=== PATIENT | female | born 1960 | race Caucasian/White ===

== ENCOUNTER 2021-12-09 12:03 | Inpatient (IN) | payer SELFPAY ==
[~2021-12-09] VITALS: Ht 161.3 cm; Wt 83.9 kg
[2021-12-09 12:06] VITALS: BP 156/84
--- NOTE | 2021-12-09 12:18 | NUR ---
DR RUIZ AT BEDSIDE EVALUATING PT
--- NOTE | 2021-12-09 12:20 | NUR ---
Dr. Bradshaw is evaluating pt at bedside
--- NOTE | 2021-12-09 12:23 | NUR ---
Oral T 101.7. Dr Bradshaw made aware.
--- NOTE | 2021-12-09 12:24 | NUR ---
61 y/o female, c/o abdominal pain x 1 week. Patient A&Ox4, ambulatory, states RLQ quadrant pain, 7/10, radiating down leg. Pt also states low back pain and dizziness. Denies n/v/d, constipation, dysuria, recent lifting, trauma/injury. Denies meds prior to arrival. Pt placed onto ekg monitor. Bed locked in lowest position, side rails x 1. Oral T 101.7. pmh: denies nka med: denies
[2021-12-09] MEDS ORDERED: MORPHINE SULFATE 4 MG/ML SYR IVP ONE (12:25)
[2021-12-09] MEDS ORDERED: NACL 0.9% 1,000 ML IV ONE ×2 (12:25→13:00)
--- NOTE | 2021-12-09 12:46 | NUR ---
Patient transported to CT by wheelchair
--- NOTE | 2021-12-09 12:49 | NUR ---
Lab at bedside.
--- NOTE | 2021-12-09 12:49 | NUR ---
Blood sample and UA handed to CPT Nicolasa at ER bedside
--- NOTE | 2021-12-09 12:55 | NUR ---
Patient returned from CT and placed back onto ceramic sprayer.
[2021-12-09] MEDS ORDERED: PIPERACILLIN/TAZOBACTAM 3.375 GM in DEXTROSE 5% 50 ML IV ONE (13:00)
[2021-12-09] MEDS ORDERED: PIPERACILLIN/TAZOBACTAM 3.375 GM VIAL IV ONE ×3 (13:37→23:30)
--- NOTE | 2021-12-09 13:40 | NUR ---
Spoke with lab who states will run pending STAT CBC/CMP at this time per Dr. Jackson request.
[2021-12-09 13:42] LABS: APPEARANCE,URINE CLEAR (CLEAR); BILIRUBIN,URINE 1+ (NEGATIVE); BLOOD, URINE TRACE-I (NEGATIVE); COLOR,URINE YELLOW (YELLOW); LEUKOCYTE ESTERASE ,URINE NEGATIVE (NEGATIVE); NITRITE, URINE NEGATIVE (NEGATIVE); UGLUCOSE NEGATIVE (NEGATIVE)
[2021-12-09 13:44] LABS: BASOPHILS % (AUTO) 0.3 % (0.0-2.0); EOSINOPHILS % (AUTO) 0.3 % (0.0-4.0); HEMATOCRIT 36.2 % (36-48); LYMPHOCYTES # (AUTO) 0.7 K/uL (2.5-16.5); LYMPHOCYTES % (AUTO) 5.1 % (20.5-51.1); MEAN CORPUSCULAR HEMOGLOBIN 27 pg (27-31); MEAN CORPUSCULAR HGB CONC 33 g/dL (33-37); MEAN CORPUSCULAR VOLUME 80.3 fL (80-94); MONOCYTES # (AUTO) 0.8 K/uL (0.8-1.0); MONOCYTES % (AUTO) 5.5 % (1.7-9.3); NEUTROPHILS # (AUTO) 12.3 K/uL (1.8-7.7); NEUTROPHILS % (AUTO) 88.8 % (42.2-75.2); PLATELET COUNT (AUTO) 671 K/uL (140-450); RED CELL DISTRIBUTION WIDTH 15.4 % (11.6-13.7); WHITE BLOOD COUNT (AUTO) 13.9 K/uL (4.8-10.8)
--- NOTE | 2021-12-09 14:03 | NUR ---
Ac coy in ED - 12/09/21 at 1404 by GABRIELA Spoke with lab who states will run pending STAT CBC/CMP at this time per Dr. Jackson request.
[2021-12-09 14:07] LABS: ALBUMIN 1.8 g/dL (3.4-5.0); ANION GAP 10.7 (8-16); CARBON DIOXIDE 30.6 mmol/L (21-32); CREATININE 0.9 mg/dL (0.6-1.3); POTASSIUM 4.3 mmol/L (3.5-5.1); TOTAL BILIRUBIN 0.8 mg/dL (0.0-1.0)
[2021-12-09 14:14] LABS: RBC,URINE 0-5 /HPF (0-5); WBC,URINE 0-5 /HPF (0-5)
--- NOTE | 2021-12-09 14:14 | NUR ---
Dr. Jackson is at bedside with patient's daughter.
[2021-12-09 14:15] LABS: CALCIUM OXALATE CRYSTALS,UR None Seen /HPF (None Seen); COARSE GRANULAR CASTS,URINE None Seen /LPF (None Seen); FINE GRANULAR CASTS,URINE None Seen /LPF (None Seen); HYALINE CASTS, URINE None Seen /LPF (None Seen); OTHER CRYSTALS,URINE None Seen /HPF (None Seen); RED BLOOD CELL CASTS,URINE None Seen /LPF (None Seen); TRICHOMONAS,URINE None Seen /HPF (None Seen); TRIPLE PHOSPHATE CRYSTAL,UR None Seen /HPF (None Seen); URIC ACID CRYSTALS,URINE None Seen /HPF (None Seen); URINE AMORPHOUS URATE None Seen /HPF (None Seen); WAXY CASTS,URINE None Seen /LPF (None Seen); YEAST,URINE None Seen /HPF (None Seen)
--- NOTE | 2021-12-09 14:15 | NUR ---
Daughter at bedside.
[2021-12-09 14:16] LABS: OTHER CASTS, URINE None Seen /LPF (None Seen)
--- NOTE | 2021-12-09 14:24 | NUR ---
Dr. Jackson is evaluating patient at bedside with Urdu interpretor #[id number].
[2021-12-09] MEDS ORDERED: ONDANSETRON 4 MG/2 ML VIAL IVP PRN (14:55)
[2021-12-09] MEDS ORDERED: HYDROcodone/APAP 5/325 MG 1 TAB TAB PO PRN (14:55)
--- NOTE | 2021-12-09 15:14 | NUR ---
Daisy (daughter in law) [phone]
[2021-12-09] MEDS ORDERED: OMEP10EC PO (15:18)
--- NOTE | 2021-12-09 16:25 | NUR ---
Patient resting in semi-fowlers position. library monitor in place. Bed locked in lowest position, side rails x 1.
[2021-12-09] MEDS ORDERED: NACL 0.9% 1,000 ML IV SCH (17:25)
--- NOTE | 2021-12-09 17:59 | NUR ---
Dr. Villanueva is evaluating patient at bedside
--- NOTE | 2021-12-09 18:01 | NUR ---
Dr. Villanueva made aware of oral T 101.2. Dr. Villanueva states he will change to NPO EXCEPT MEDS. Tylenol PO PRN to be given.
[2021-12-09] MEDS: ACETAMINOPHEN 325 MG TAB PO PRN (18:03)
[2021-12-09] MEDS ORDERED: VANCOMYCIN PER PHARMACY MC PRN (18:10)
[2021-12-09] MEDS ORDERED: VANCOMYCIN 1,000 MG in DEXTROSE 5% 250 ML IV SCH (18:15)
[2021-12-09] MEDS ORDERED: VANCOMYCIN 1,000 MG VIAL ONE (18:28)
--- NOTE | 2021-12-09 18:46 | NUR ---
Oral temperature 100.7. Patient states 7/10 pain at this time. traffic monitor specialist remains in place with IVF/IVPB. Bed locked in lowest position, side rails x 1. Spouse remains at bedside.
[2021-12-09] MEDS: MORPHINE SULFATE 2 MG/ML SYR IVP PRN (18:48)
--- NOTE | 2021-12-09 19:02 | NUR ---
Pain 5/10; denies nausea, SOB. All pt needs met. SpO2 93% RR 24.
--- NOTE | 2021-12-09 19:12 | NUR ---
Report and transfer of care endorsed to MARY Wesley.
--- NOTE | 2021-12-09 20:53 | NUR ---
LUIS ANGEL CRISTIAN [phone] PLEASE CALL WHEN SHE HAS SURGERY
[2021-12-09] MEDS: PIPERACILLIN/TAZOBACTAM 3.375 GM in DEXTROSE 5% 50 ML IV SCH ×2 (20:56→23:44)
--- NOTE | 2021-12-09 22:04 | NUR ---
PT SAT UP AND BED, DANGLED FEET , ASSISTED TO STAND UP . PT AMBULATED TO BATHROOM WITH EVEN AND STEADY GAIT.
--- NOTE | 2021-12-09 22:30 | NUR ---
Patient will be admitted to care of . Admited to MED SURG. Will go to [id number] B. Belongings list completed. Report to SUZIE STANTON.
--- NOTE | 2021-12-10 01:24 | NUR ---
PATIENT TO ROOM 106-B AT 2240 PATIENT ALERT X4 NO C/O OF PAIN IS NPO EXCEPT MEDS DUE TO BOWEL PERFORATION.TO HAVE IN A.M COLOSTOMY AT 10 A.M. PATIENT RECEIVED ZOSYN 3.375 GM 0000 AND AGAIN AT 0600. TEMP 99.1 B/P 124/58. HAS NS INFUSING AT 100 HOUR. HAS 20 GA RIGHT A.C. PATIENT ON MONITOR SINUS TACH. 107 HEART RATE. PATIENT NPO POST MID-NITE PATIENT IS BELARUSIAN SPEAKING ONLY. NKA. NO DIET NO DISTRESS NOTED AT THIS TIME.
[2021-12-10 04:00] VITALS: BP 115/59
[2021-12-10] MEDS ORDERED: PIPERACILLIN/TAZOBACTAM 3.375 GM VIAL IV ONE ×2 (04:55→10:46)
[2021-12-10] MEDS: PIPERACILLIN/TAZOBACTAM 3.375 GM in DEXTROSE 5% 50 ML IV SCH ×3 (06:00→21:46)
[2021-12-10 07:08] LABS: BASOPHILS % (AUTO) 0.4 % (0.0-2.0); EOSINOPHILS # (AUTO) 0.1 K/uL (0-0.4); EOSINOPHILS % (AUTO) 0.6 % (0.0-4.0); HEMATOCRIT 30.5 % (36-48); HEMOGLOBIN 10.1 g/dL (12.0-16.0); LYMPHOCYTES # (AUTO) 0.6 K/uL (2.5-16.5); LYMPHOCYTES % (AUTO) 5.6 % (20.5-51.1); MEAN CORPUSCULAR HEMOGLOBIN 27 pg (27-31); MEAN CORPUSCULAR HGB CONC 33 g/dL (33-37); MEAN CORPUSCULAR VOLUME 80.3 fL (80-94); MONOCYTES # (AUTO) 1.1 K/uL (0.8-1.0); MONOCYTES % (AUTO) 9.3 % (1.7-9.3); NEUTROPHILS # (AUTO) 9.5 K/uL (1.8-7.7); NEUTROPHILS % (AUTO) 84.1 % (42.2-75.2); PLATELET COUNT (AUTO) 636 K/uL (140-450); RED BLOOD CELL COUNT(AUTO) 3.79 MIL/uL (4.20-5.40); RED CELL DISTRIBUTION WIDTH 15.2 % (11.6-13.7); WHITE BLOOD COUNT (AUTO) 11.3 K/uL (4.8-10.8)
[2021-12-10 07:14] LABS: ANION GAP 9.2 (8-16); CARBON DIOXIDE 29.5 mmol/L (21-32); CREATININE 0.8 mg/dL (0.6-1.3); POTASSIUM 3.7 mmol/L (3.5-5.1)
--- NOTE | 2021-12-10 07:15 | NUR ---
RECEIVED REPORT FROM DIRECTOR SAFETY NURSE FOR CONTINUITY OF CARE.
[2021-12-10 07:16] LABS: MAGNESIUM 1.9 mg/dL (1.8-2.4); PHOSPHORUS 3.1 mg/dL (2.5-4.9)
[2021-12-10 08:00] VITALS: BP 137/62
--- NOTE | 2021-12-10 08:00 | NUR ---
Patient's Plan of Care was discussed and reviewed with AAMIR HERNANDEZ
--- NOTE | 2021-12-10 08:58 | NUR ---
PATIENT ALERT ORIENTED PASHTO SPEAKING. WHEELED BY OR NURSE FOR HER PROCEDURE.
[2021-12-10] MEDS: PANTOPRAZOLE 40 MG TABEC PO SCH (09:00)
[2021-12-10] MEDS ORDERED: DESFLURANE 240 ML BTL INH ONE (10:05)
[2021-12-10] MEDS ORDERED: BUPIVACAINE-MPF/EPI 0.5% 30 ML VIAL INJ ONE (10:10)
[2021-12-10] MEDS ORDERED: MIDAZOLAM 2 MG/2 ML VIAL ONE (10:13)
[2021-12-10] MEDS ORDERED: ROCURONIUM 50 MG/5 ML VIAL IV ONE ×2 (10:14→10:33)
[2021-12-10] MEDS ORDERED: fentaNYL citrate 0.05 MG/ML VIAL ONE (10:14)
[2021-12-10] MEDS ORDERED: LIDOCAINE 2% 100 MG/5 ML SYR IVP ONE (10:14)
[2021-12-10] MEDS ORDERED: PROPOFOL 200 MG/20 ML VIAL IV ONE (10:14)
[2021-12-10] MEDS ORDERED: METOPROLOL 5 MG/5 ML VIAL ONE ×2 (10:29→10:32)
[2021-12-10] MEDS ORDERED: VANCOMYCIN 750 MG in DEXTROSE 5% 250 ML IV SCH (10:30)
[2021-12-10] MEDS ORDERED: DEXAMETHASONE 4 MG/ML VIAL ONE (10:42)
[2021-12-10] MEDS ORDERED: ONDANSETRON 4 MG/2 ML VIAL ONE (10:45)
[2021-12-10] MEDS ORDERED: SUGAMMADEX SODIUM 200 MG/2 ML VIAL IV ONE (11:26)
[2021-12-10] MEDS ORDERED: LACTATED RINGERS 1,000 ML IV SCH (11:35)
[2021-12-10] MEDS ORDERED: ONDANSETRON 4 MG/2 ML VIAL IVP PRN (11:35)
--- NOTE | 2021-12-10 12:01 | NUR ---
DC PLANNIN YRS OLD FEMALE PATIENT WAS ADMITTED FROM HOME WITH A DX OF BOWEL PERFORATED. PATIENT HAS A HX OF DIVERTICULITIS. CXR SHOWED LOW LUNG VOLUMES WITH ATELECTASIS. RAPID COVID TEST NEGATIVE. 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 CT ABD/PELVIS SHOWED POSSIBLE ABSCESS/COLLECTIONS. ADMINISTERED IVF, IV ABX ZOSYN AND VANCOMYCIN. CONSULTED WITH SURGEON DR GARCIA FOR POSSIBLE EXP LAP RESECTION OF COLON THE LEFT SIDE CREATION OF COLOSTOMY. DC PLAN TO GO HOME WHEN STABLE. CM TO FOLLOW. Addendum: 12/11/21 at 1256 by Yael aMta RN DC PLANNING: POD# 1 S/P EXP. LAP LYSIS OF ADHESIONS SIGMOID COLECTOMY AND CALLE'S POUCH OPERATION WITH TIMO DRAINAGE. STARTED CLEAR LIQUID DIET. CONTINUED IV ABX VANCOMYCIN AND ZOSYN AND MORPHINE FOR PAIN. DC PLAN TO GO HOME WHEN STABLE. CM TO FOLLOW Addendum: 12/13/21 at 1403 by Yael Mata RN DC PLANNING: CALLED [employer] DHARM[facility] [phone] LEFT A MESSAGE. CALLED AGA [facility] [phone] SPOKE WITH ROYCE STATED JUST TO FAX THE ORDER AND DEMOGRAPHIC AND PT WILL GET OSTOMY SUPPLIES WITH NO COST. FAXED THE ORDER TO [phone]. CM TO FOLLOW Addendum: 12/14/21 at 1305 by Yael Mata RN DC PLANNING: RECEIVED A CALL FROM [employer] SPOKE WITH [employer] [phone] IVORIAN SPEAKING LINE STATED 1 BOX HAS 10 POUCHES FOR THE CASTRO OF 49.41. CALL [facility] SPOKE WITH SMILEY STATED SHE DOESN'T THINK ITS FREE BUT SHE WILL ASK THE NURSE AND GET BACK TO ME. MET A PATIENT AT THE BED SIDE WITH FILL TECHNICIAN KUSUM EXPLAINED THE PRICES AND PROVIDE ALL THE NUMBERS AND A F/U APPOINTMENT. PT VERBALIZED UNDERSTANDING AND STATED HER NIECE IS A NURSE AND WILL HELP HER WITH COLOSTOMY BAG CHANGE. CM TO FOLLOW.
[2021-12-10] MEDS ORDERED: ceFAZolin 1,000 MG VIAL ONE (12:07)
[2021-12-10] MEDS: LACTATED RINGERS 1,000 ML IV SCH ×2 (12:35→21:52)
[2021-12-10] MEDS: HYDROmorphone 1 MG/ML AMP IVP PRN ×4 (12:40→13:10)
[2021-12-10] MEDS ORDERED: HYDROmorphone PFS 2 MG/ML SYR ONE (12:45)
[2021-12-10] MEDS: MEPERIDINE 25 MG/ML SYR IVP PRN ×2 (13:15→13:25)
--- NOTE | 2021-12-10 13:40 | NUR ---
PATIENT CAME BACK FROM OR AWAKE NO DISTRESS SLOW TO RESPONDS. VITAL SIGN STABLE. COLOSTOMY BACK ON AND NO FOUL ODOR NOTED NO LEAKAGE NOTED. GODWIN DRAINING WITH BRIGHT PINK DRAINAGE NO COMPLAIN AT THIS TIME. PATIENT ON EARL CATHETER.
[2021-12-10] MEDS: VANCOMYCIN 750 MG in DEXTROSE 5% 250 ML IV SCH (15:00)
--- NOTE | 2021-12-10 15:30 | NUR ---
PATIENT ON BED ALERT ABLE TO RESPONDS VERBALLY UNABLE TO GIVE VANCO AT THIS TIME DUE TO IV UNABLE TO INSERT.
[2021-12-10 16:00] VITALS: BP 127/71
[2021-12-10] MEDS: HYDROcodone/APAP 5/325 MG 1 TAB TAB PO PRN ×2 (16:06→20:33)
--- NOTE | 2021-12-10 17:30 | NUR ---
VANCO GIVEN BY RN AFTER IV SITE OBTAIN NO ADVERSE REACTION NOTED. GODWIN DRAINING WITH BRIGHT BLOOD. AT BED SIDE.
--- NOTE | 2021-12-10 18:49 | NUR ---
PATIENT GODWIN DRAINED OBTAINED 30 CC OF BRIGHT BLOOD PATIENT COMPLAIN OF SEVERE PAIN ON ABDOMINAL SURGICAL SITE. RN GAVE MORPHINE IVP
[2021-12-10] MEDS: MORPHINE SULFATE 2 MG/ML SYR IVP PRN ×2 (18:50→23:46)
--- NOTE | 2021-12-10 19:44 | NUR ---
ENDORSED PT TO SUPERVISOR FERTILIZER NURSE FOR CONTINUITY OF CARE. ALL NEEDS MET THROUGHOUT SHIFT. PT IS STABLE.
--- NOTE | 2021-12-10 19:45 | NUR ---
RECEIVED ENDORSEMENT FROM MARY RUTLEDGE FOR CONTINUITY OF CARE. PATIENT IS AWAKE AND STABLE. A&OX4 GUATEMALAN SPEAKING ONLY. VERBALLY RESPONSIVE AND ABLE TO COMMUNICATE NEEDS. ON ROOM AIR WITH NO APPARENT S/SX OF ACUTE DISTRESS. RESPIRATIONS EVEN AND UNLABORED. PATIENT IS AMBULATORY. PATIENT HAS A F/C IN PLACE WITH URINE OUTPUT VISIBLE. PATIENT HAS A GODWIN. PATIENT'S IV SITE TO LAC 18G IS PATENT/INTACT. PLAN OF CARE AND WHITE COMMUNICATION BOARD UPDATED. ALL SAFETY MEASURES IN PLACE. CALL LIGHT WITHIN REACH. WILL CONTINUE TO MONITOR.
[2021-12-10 20:00] VITALS: BP 124/64
--- NOTE | 2021-12-10 20:00 | NUR ---
Patient's Plan of Care was discussed and reviewed with MARY MCKEON.
--- NOTE | 2021-12-10 21:00 | NUR ---
ANSWERED CALL LIGHT. PATIENT C/O 610 LOWER ABD PAIN. MEDICATED PER PRN ORDER. TOLERATED WELL. RESPIRATIONS EVEN AND UNLABORED WITH NO APPARENT S/SX OF ACUTE DISTRESS. WHITE COMMUNICATION BOARD UPDATED. ALL SAFETY MEASURES IN PLACE. CALL LIGHT WITHIN REACH. WILL CONTINUE TO MONITOR.
--- NOTE | 2021-12-10 23:05 | NUR ---
ANSWERED CALL LIGHT. PATIENT C/O 05/11 ABD PAIN. ENDORSED TO KSENIA LARSEN FOR IV PRN COVERAGE PER MD ORDER. RESPIRATIONS EVEN AND UNLABORED WITH NO APPARENT S/SX OF ACUTE DISTRESS. WHITE COMMUNICATION BOARD UPDATED. ALL SAFETY MEASURES IN PLACE. CALL LIGHT WITHIN REACH. WILL CONTINUE TO MONITOR.
--- NOTE | 2021-12-11 00:45 | NUR ---
SPOKE WITH VENKAT REYNOLDS REGARDING PATIENT'S PENDING US. PER DR. JOHNSON, SHE FORGOT TO SIGN CONSENT SO SHE WILL SIGN IN WHEN SHE COMES IN DURING DAY SHIFT 12/11/2021.
--- NOTE | 2021-12-11 01:05 | NUR ---
CHECKED PATIENT. STABLE AND ASLEEP. CHEST IS RISING AND FALLING. RESPIRATIONS EVEN AND UNLABORED WITH NO APPARENT S/SX OF ACUTE DISTRESS. WHITE COMMUNICATION BOARD UPDATED. ALL SAFETY MEASURES IN PLACE. CALL LIGHT WITHIN REACH. WILL CONTINUE TO MONITOR.
[2021-12-11] MEDS: VANCOMYCIN 750 MG in DEXTROSE 5% 250 ML IV SCH (02:34)
[2021-12-11] MEDS: HYDROcodone/APAP 5/325 MG 1 TAB TAB PO PRN ×2 (02:40→08:30)
--- NOTE | 2021-12-11 03:05 | NUR ---
ROUNDED ON PATIENT. STABLE AND ASLEEP. CHEST IS RISING AND FALLING. RESPIRATIONS EVEN AND UNLABORED WITH NO APPARENT S/SX OF ACUTE DISTRESS. WHITE COMMUNICATION BOARD UPDATED. ALL SAFETY MEASURES IN PLACE. CALL LIGHT WITHIN REACH. WILL CONTINUE TO MONITOR.
[2021-12-11 04:00] VITALS: BP 118/76
[2021-12-11] MEDS: PIPERACILLIN/TAZOBACTAM 3.375 GM in DEXTROSE 5% 50 ML IV SCH ×4 (04:28→18:01)
--- NOTE | 2021-12-11 05:05 | NUR ---
CHANGED PATIENT'S IVF BAG. TOLERATED WELL. PATIENT IS STABLE AND ASLEEP. CHEST IS RISING AND FALLING EVENLY. RESPIRATIONS EVEN AND UNLABORED WITH NO APPARENT S/SX OF ACUTE DISTRESS. ALL NEEDS MET. WHITE COMMUNICATION BOARD UPDATED. ALL SAFETY MEASURES IN PLACE. CALL LIGHT WITHIN REACH. WILL CONTINUE TO MONITOR.
[2021-12-11] MEDS: MORPHINE SULFATE 2 MG/ML SYR IVP PRN ×2 (05:49→11:41)
[2021-12-11 06:48] LABS: BASOPHILS % (AUTO) 0.4 % (0.0-2.0); EOSINOPHILS % (AUTO) 0.2 % (0.0-4.0); HEMATOCRIT 29.6 % (36-48); LYMPHOCYTES # (AUTO) 0.7 K/uL (2.5-16.5); LYMPHOCYTES % (AUTO) 6.8 % (20.5-51.1); MEAN CORPUSCULAR HEMOGLOBIN 27 pg (27-31); MEAN CORPUSCULAR HGB CONC 34 g/dL (33-37); MEAN CORPUSCULAR VOLUME 80.3 fL (80-94); MONOCYTES # (AUTO) 0.6 K/uL (0.8-1.0); MONOCYTES % (AUTO) 6.1 % (1.7-9.3); NEUTROPHILS # (AUTO) 9.1 K/uL (1.8-7.7); NEUTROPHILS % (AUTO) 86.5 % (42.2-75.2); PLATELET COUNT (AUTO) 674 K/uL (140-450); RED BLOOD CELL COUNT(AUTO) 3.69 MIL/uL (4.20-5.40); RED CELL DISTRIBUTION WIDTH 15.3 % (11.6-13.7); WHITE BLOOD COUNT (AUTO) 10.6 K/uL (4.8-10.8)
--- NOTE | 2021-12-11 07:00 | NUR ---
ENDORSED PATIENT TO MARY RUTLEDGE FOR CONTINUITY OF CARE. PATIENT IS STABLE.
--- NOTE | 2021-12-11 07:05 | NUR ---
RECEIVED ENDORSEMENT FROM MANUAL PLATE FILLER NURSE FOR CONTINUITY OF CARE.
[2021-12-11 07:13] LABS: ANION GAP 10.1 (8-16); CARBON DIOXIDE 29.1 mmol/L (21-32); CREATININE 0.7 mg/dL (0.6-1.3); POTASSIUM 4.2 mmol/L (3.5-5.1)
--- NOTE | 2021-12-11 07:30 | NUR ---
RECEIVED REPORT FROM MARY RUTLEDGE FOR CONTINUITY OF CARE. PLAN OF CARE DISCUSSED.
--- NOTE | 2021-12-11 08:00 | NUR ---
STUDENT DOCTOR CAME AND ASSES PATIENT INFORM THAT COLOSTOMY HAS NO OUT PUT SINCE YESTERDAY DEMARCO SPECIMEN NOT COLLECTED. ALSO INFORM HER IF WE ARE GOING TO DISCONTINUE EARL CATHETER AND IF WE ARE GOING TO GIVE IV HYDRATION.
[2021-12-11] MEDS: PANTOPRAZOLE 40 MG TABEC PO SCH (08:30)
--- NOTE | 2021-12-11 08:35 | NUR ---
PATIENT COMPLAIN OF ABDOMINAL PAIN MEDICATED ORDER. GIVEN PANTOPRAZOLE. GODWIN DRAIN NOTED WITH SCANT DRAINAGE AT THIS TIME. COLOSTOMY NO OUT PUT YET. ENCOURAGED TO INCREASE FLUID TOLERATED
--- NOTE | 2021-12-11 08:52 | NUR ---
PATIENT HAS BEEN SCREENED AND CATEGORIZED HIGH NUTRITION RISK. PATIENT WILL BE SEEN WITHIN 1-2 DAYS OF ADMISSION. 12/11/[address]
--- NOTE | 2021-12-11 09:36 | NUR ---
PATIENT WAS SEEN BY DR. GATES.
[2021-12-11] MEDS: DEXT 5% /NACL 0.9% 1,000 ML IV SCH (09:42)
--- NOTE | 2021-12-11 10:10 | NUR ---
REMOVED PT URINARY CATHETER. PT TOLERATED WELL.
--- NOTE | 2021-12-11 10:35 | NUR ---
RESIDENT AHUMADA FOR 0600 NON ADMIN DUE TO BEHIND SCHEDULE DUE TO NO IV ACCESS PER PHARMACY SKIP 0600 DOSE AND RESUME THE 1200 SCHEDULE.
[2021-12-11] MEDS ORDERED: HYDROmorphone 1 MG/ML AMP IVP PRN (11:15)
--- NOTE | 2021-12-11 11:41 | NUR ---
PT WAS GIVEN MORPHINE FOR PAIN ORDERED. BP WAS 126/64 PRIOR TO ADMINISTRATION OF MEDICATION. WILL MONITOR PAIN.
--- NOTE | 2021-12-11 12:01 | NUR ---
P.T. NOTES P.T. EVAL COMPLETED; REFER TO EVAL FOR DETAILS.
[2021-12-11] MEDS ORDERED: MAGNESIUM HYDROXIDE 2400 MG/30 ML UDC PO PRN (12:35)
--- NOTE | 2021-12-11 14:00 | NUR ---
PATIENT ON BED RESTING WITH CALL LIGHT WITH IN EASY REACH. NO DISTRESS AT THIS UADREY. NO COMPLAIN OB URINARY RETENTION AT THIS TIME.
[2021-12-11] MEDS: VANCOMYCIN HCL 1.25 GM in DEXTROSE 5% 250 ML IV SCH (15:50)
--- NOTE | 2021-12-11 15:50 | NUR ---
RN GAVE IVPB VANCO NO ADVERSE REACTION NOTED. CALL LIGHT WITH IN EASY REACH.
--- NOTE | 2021-12-11 16:09 | NUR ---
12/11/21 RD INITIAL ASSESSMENT COMPLETED PLEASE REFER TO NUTRITION ASSESSMENT UNDER CARE ACTIVITY FOR ESTIMATED NUTRITIONAL NEEDS. 1. CONTINUE CLEAR LIQUID DIET TOLERATED -WHEN/IF MEDICALLY APPROPRIATE, ADVANCE TO LOW-FIBER DIET TOLERATED 2. PROVIDED NUTRITION EDUCATION ON LOW-FIBER DIET 3. RD TO FOLLOW-UP 3-5 DAYS, MODERATE RISK PADMINI ALONSO RD
[2021-12-11] MEDS: ACETAMINOPHEN 325 MG TAB PO PRN (16:32)
--- NOTE | 2021-12-11 16:32 | NUR ---
PT COMPLAINT OF PAIN 11/08. PRN MED GIVEN ORDERED. PT HASN'T BEEN DEFECATING FOR 3 DAYS. MILK OF MAGNESIA GIVEN.
--- NOTE | 2021-12-11 18:14 | NUR ---
RN GAVE IV ANTIBIOTIC OF ZOSYN NO ADVERSE REACTION NOTED. PATIENT NO URINARY RETENTION NOTED WENT TO TOILET X4. NO HEMATURIA, NO DYSURIA NOTED. GODWIN DRAINED OBTAINED 30 CC OF SEROUS SANGUINIS. CALL LIGHT WITH IN EASY REACH AT BED SIDE.
--- NOTE | 2021-12-11 19:30 | NUR ---
ENDORSED PT TO PROCESS CONTROL ENGINEER NURSE FOR CONTINUITY OF CARE. ALL NEEDS MET THROUGHOUT SHIFT. WILL CONTINUE TO MONITOR.
--- NOTE | 2021-12-11 19:31 | NUR ---
RECEIVED PT REPORT BEDSIDE FROM DAY SHIFT RN TO CONTINUE CARE. SAFETY MEASURES IN PLACE, CALL LIGHT WITHIN REACH.
--- NOTE | 2021-12-11 20:20 | NUR ---
PT WAS TAKEN TO HAVE CT SCAN ON ABDOMEN/PELVIS
[2021-12-11] MEDS: MAGNESIUM HYDROXIDE 2400 MG/30 ML UDC PO PRN (22:21)
[2021-12-12] MEDS: PIPERACILLIN/TAZOBACTAM 3.375 GM in DEXTROSE 5% 50 ML IV SCH ×5 (00:30→23:23)
--- NOTE | 2021-12-12 00:30 | NUR ---
RN ADMINISTERED IV ANTIBIOTIC OF ZOSYN, PT TOLERATED WELL, NOTED WITH NO ADVERSE REACTION. PATIENT USED TOILET X 2. NO URINARY RETENTION, DENIED OF HEMATURIA OR DYSURIA. SAFETY MEASURES IN PLACE. CALL LIGHT WITH IN REACH.
[2021-12-12] MEDS: VANCOMYCIN HCL 1.25 GM in DEXTROSE 5% 250 ML IV SCH ×2 (02:46→14:13)
--- NOTE | 2021-12-12 03:00 | NUR ---
PT ASLEEP. IV MEDS GIVEN PER MD ORDER. IV LINE PATENT WITH NO SIGN/SYMPTOM OF INFECTION. NO ADVERSE REACTION. SAFETY MEASURES IN PLACE. CALL LIGHT WITHIN REACH.
--- NOTE | 2021-12-12 05:28 | NUR ---
PT ASLEEP. CALL LIGHT WITHIN REACH. SAFETY MEASURES IN PLACE. CONTINUE TO MONITOR.
[2021-12-12 06:07] LABS: FOLIC ACID 10.2 ng/mL (>3.0)
[2021-12-12 06:41] LABS: ANION GAP 10.7 (8-16); CARBON DIOXIDE 28.1 mmol/L (21-32); CREATININE 1.5 mg/dL (0.6-1.3); POTASSIUM 3.8 mmol/L (3.5-5.1)
[2021-12-12 06:42] LABS: BASOPHILS % (AUTO) 0.2 % (0.0-2.0); HEMATOCRIT 31.5 % (36-48); HEMOGLOBIN 10.4 g/dL (12.0-16.0); LYMPHOCYTES # (AUTO) 0.9 K/uL (2.5-16.5); MEAN CORPUSCULAR HEMOGLOBIN 26 pg (27-31); MEAN CORPUSCULAR HGB CONC 33 g/dL (33-37); MEAN CORPUSCULAR VOLUME 79.6 fL (80-94); MONOCYTES # (AUTO) 1.3 K/uL (0.8-1.0); NEUTROPHILS # (AUTO) 15.7 K/uL (1.8-7.7); NEUTROPHILS % (AUTO) 87.8 % (42.2-75.2); PLATELET COUNT (AUTO) 750 K/uL (140-450); RED BLOOD CELL COUNT(AUTO) 3.96 MIL/uL (4.20-5.40); RED CELL DISTRIBUTION WIDTH 15.1 % (11.6-13.7); WHITE BLOOD COUNT (AUTO) 17.9 K/uL (4.8-10.8)
--- NOTE | 2021-12-12 07:35 | NUR ---
ENDORSED PT TO DAY SHIFT NURSE FOR CONTINUITY OF CARE. PT IS STABLE. ALL NEEDS MET. WILL CONTINUE TO MONITOR.
--- NOTE | 2021-12-12 08:00 | NUR ---
RECEIVED ENDORSE FROM PM SHIFT NURSE; PT REST ON BED, PIV L.WRIST, 22G PATENT; IV INFUSING.STILL NO BM IN COLOSTOMY BAG FOR OCCULT BLOOD CULTURE. WBC 17.9, REPORTED RESULT TO DR. JOHNSON AND RECEIVE ID CONSULT, BLOOD CULTURE X 1, AND UA X1. WILL CONTINUE TO MONITOR.
[2021-12-12] MEDS: DOCUSATE SODIUM 100 MG GELCAP PO SCH (09:13)
[2021-12-12] MEDS: PANTOPRAZOLE 40 MG TABEC PO SCH (09:13)
[2021-12-12] MEDS: MAGNESIUM HYDROXIDE 2400 MG/30 ML UDC PO PRN (09:14)
[2021-12-12] MEDS: DEXT 5% /NACL 0.9% 1,000 ML IV SCH (10:18)
--- NOTE | 2021-12-12 11:26 | NUR ---
PT'S SURGEON IS HERE OPEN THE INSERTION WOUND DRESSING 1ST TIME, COLOSTOMY W/ NO DRAINAGE. ORDER TO UPGRADE DIET TO CLEAR LIQUID DIET
--- NOTE | 2021-12-12 12:00 | NUR ---
PATIENT'S WOUND DRESSING CHANGED PER DR. GARCIA'S INSTRUCTION. CLEAN WOUND WITH BETADINE. PLACE NEW COLOSTOMY BAG.
[2021-12-12 13:54] LABS: AMYLASE 25 U/L (25-115); LIPASE 113 U/L (73-393)
--- NOTE | 2021-12-12 17:50 | NUR ---
LAB CALL AND REPORT THAT PATIENT'S VANCOMYCIN TROUGH 25. D/C CURRENT ACTIVE 1700 DOSE IV VANCOMYCIN.
--- NOTE | 2021-12-12 19:37 | NUR ---
RECEIVED REPORT FROM AM NURSE. PATIENT IN BED WELL RESTED. NO SOB NOTED. RESPIRATION REGULAR NON LABORED. IVF INFUSING ON THE LEFT WRIST. NO COMPLAINTS OF PAIN. SAFETY MEASURES IN PLACE. AT BEDSIDE. CALL LIGHT WITHIN REACH. WILL CONTINUE TO MONITOR PT.
--- NOTE | 2021-12-12 19:37 | NUR ---
ENDORSE FROM PM SHIFT NURSE; PT REST ON BED, PIV L.WRIST, 22G PATENT; IV INFUSING
--- NOTE | 2021-12-12 23:24 | NUR ---
ZOSYN ADMINISTERED ORDERED.
[2021-12-13] VITALS: BP 131/74
--- NOTE | 2021-12-13 02:18 | NUR ---
CHECKED PATIENT, PT IS SLEEPING CHEST RISE AND FALL SYMMETRICALLY. NO S/S OF RESPIRATORY DISTRESS. CALL LIGHT WITHIN REACH.
[2021-12-13] MEDS: PIPERACILLIN/TAZOBACTAM 3.375 GM in DEXTROSE 5% 50 ML IV SCH ×4 (05:59→18:04)
[2021-12-13 07:24] LABS: BASOPHILS % (AUTO) 0.2 % (0.0-2.0); EOSINOPHILS % (AUTO) 0.3 % (0.0-4.0); HEMATOCRIT 29.9 % (36-48); HEMOGLOBIN 9.8 g/dL (12.0-16.0); LYMPHOCYTES # (AUTO) 0.9 K/uL (2.5-16.5); LYMPHOCYTES % (AUTO) 6.8 % (20.5-51.1); MEAN CORPUSCULAR HEMOGLOBIN 26 pg (27-31); MEAN CORPUSCULAR HGB CONC 33 g/dL (33-37); MEAN CORPUSCULAR VOLUME 80.1 fL (80-94); MONOCYTES # (AUTO) 0.9 K/uL (0.8-1.0); NEUTROPHILS # (AUTO) 11.2 K/uL (1.8-7.7); NEUTROPHILS % (AUTO) 85.7 % (42.2-75.2); PLATELET COUNT (AUTO) 756 K/uL (140-450); RED BLOOD CELL COUNT(AUTO) 3.73 MIL/uL (4.20-5.40); RED CELL DISTRIBUTION WIDTH 15.3 % (11.6-13.7); WHITE BLOOD COUNT (AUTO) 13.1 K/uL (4.8-10.8)
--- NOTE | 2021-12-13 07:30 | NUR ---
ENDORSED TO AM NURSE FOR CONTINUITY OF CARE. PT IS STABLE.
[2021-12-13 08:00] VITALS: BP 112/56
[2021-12-13 08:06] LABS: ANION GAP 10.5 (8-16); CARBON DIOXIDE 32.3 mmol/L (21-32); CREATININE 1.3 mg/dL (0.6-1.3); POTASSIUM 3.8 mmol/L (3.5-5.1)
[2021-12-13 08:08] LABS: HEPATITIS A ANTIBODY IGM Negative (Negative); HEPATITIS B CORE AB TOTAL Negative (Negative); HEPATITIS B SURFACE ANTIBODY Negative (.); HEPATITIS B SURFACE ANTIGEN Negative (Negative)
[2021-12-13] MEDS: DOCUSATE SODIUM 100 MG GELCAP PO SCH (09:02)
[2021-12-13] MEDS: MAGNESIUM HYDROXIDE 2400 MG/30 ML UDC PO PRN (09:02)
[2021-12-13] MEDS: PANTOPRAZOLE 40 MG TABEC PO SCH (09:02)
[2021-12-13] MEDS ORDERED: VANCOMYCIN 1,000 MG in DEXTROSE 5% 250 ML IV SCH (10:00)
[2021-12-13] MEDS: DEXT 5% /NACL 0.9% 1,000 ML IV SCH (10:11)
--- NOTE | 2021-12-13 15:00 | NUR ---
DC PLANNING PATIENT IS A 61-YEAR-OLD FEMALE ADMITTED ON 12/09/2021 AT [facility]/ED DUE TO ABDOMINAL PAIN AND RIGHT LOWER QUADRANT WORSENING PAIN. PATIENT REPORTED THAT STARTED 2 WEEKS AGO AND PATIENT WENT TO ANOTHER URGENT CARE AND SHE WAS PRESCRIBED AMOXICILLIN FOR A UTI. PATIENT REPORTED THAT SHE HAD SIMILAR PAINS IN [facility] A FEW YEARS AGO AND WAS DIAGNOSED WITH DIVERTICULITIS. SW MET WITH PATIENT AT BEDSIDE TO DISCUSS AND GATHER PATIENT'S COLLATERAL INFORMATION. PATIENT REPORTED THAT SHE AND HER ARE IN THE [place] VISITORS FROM [facility], AND THEY ARE STAYING WITH COUSINS DURING THEIR VISIT HERE IN [facility]. ACCORDING TO PATIENT SHE WAS SCHEDULED TO GO BACK THESE UP COMING WEEK BUT WAS FEELING SICK AND HAD TO POSTPONE THEIR TRIP BACK HOME TO [facility] DUE TO HER HOSPITALIZATION. WHEN LOW VOLTAGE ELECTRICIAN ASKED PATIENT ABOUT A.D PATIENT DECLINED INFORMATION PACKET PROVIDED BY [employer] AND STATED MY WILL BE MAKING DECISIONS FOR ME IF IM NOT ABLE. ACCORDING TO PATIENT SHE WILL WAIT FOR WHEN SHE IS DISCHARGE FROM [facility] AND WILL PLAN HER RETURN TO [facility] WHERE SHE HAS MEDICAL CARE PROVIDERS AND WILL FOLLOW UP AT HER RETURN [place]. PATIENT REPORTED BEEN ACTIVE AND INDEPENDENT AT HOME, PATIENT REPORTED NOT HAVING OR NEEDING DME AND NOT HAVING ANY ISSUES WITH GETTING OR TAKING ANY MEDICATIONS. SW EXPLAINED TO PATIENT THE NEED TO FOLLOW UP WITH AN APPOINTMENT WITHIN 5-7 DAYS WITH HER PCP AFTER DC, PATIENT AGREED TO FOLLOW UP WITH HER APPOINTMENTS AND ACCEPTED RESOURCES TO MEDICATIONS AND CLINICS AROUND HER AREA WHERE SHE CAN FOLLOW UP WITH HER MEDICAL CARE. PATIENT STATED THAT HER WILL BE ASSISTING HER WITH TRANSPORTATION BACK HOME WHEN SHE IS READY FOR DISCHARGE. SW WILL FOLLOW UP WITH PATIENT NEEDED. Addendum: 12/14/21 at 1646 by Kristen LOCKHART DC PLANNING SW CALL [facility] AT TO SEP UP A FOLLOW UP APPOINTMENT. SW SPOKE TO EARLENE WHO WAS ABLE TO PROVIDE A FOLLOW UP APPT. FOR 12/19/2021 WITH OLGA LIDIA HERR AT [address] [facility], [phone] SW THANKED HER AND ENDED THE CALL. SW AND CM MEET WITH PATIENT AT BEDSIDE TO DISCUSS THE IMPORTANCE OF FOLLOWING UP WITH A DOCTOR'S APPOINTMENT ALREADY MADE FOR HER BY THESE MAKE UP ARRANGER AND REMINDED HER TO ATTEND AFTER HER DISCHARGE FROM [facility]. SW PROVIDED PATIENT WITH A NOTE WITH FOLLOW UP APPOINTMENT, ADDRESS, DATE TIME AND CONTACT NUMBER. SW AND CM ALSO PROVIDED PATIENT WITH ADDITIONAL RESOURCES TO OTHER LOW-TO NO COST CLINICS IN THE AREA. SW AND CM INFORMED PATIENT ABOUT [facility] PROVIDING HER WITH BAGS SUPPLIES FOR 49.43 FOR A BOX OF 10 POUCHES. PATIENT WAS APPRECIATIVE OF THE INFORMATION SW ENDED THE VISIT. SW/CM WILL FOLLOW UP NEEDED.
[2021-12-13 16:00] VITALS: BP 126/58
--- NOTE | 2021-12-13 19:30 | NUR ---
RECEIVED BEDSIDE REPORT FROM DAY SHIFT RN FOR CONTINUITY OF CARE. PT IS NOT IN ANY DISTRESS. BREATHING RHYTHMIC AND UNLABORED. BY BEDSIDE. IVF RUNNING PER MD ORDER. CALL LIGHT WITHIN REACH. ALL SAFETY MEASURES TAKEN. WILL CONTINUE TO MONITOR THE PT.
[2021-12-13 20:00] VITALS: BP 124/73
[2021-12-13] MEDS: MORPHINE SULFATE 2 MG/ML SYR IVP PRN (20:26)
--- NOTE | 2021-12-13 20:30 | NUR ---
PT COMPLAINING OF ABD PAIN. PT IS COMPLAINING OF 6 OUT OF 10 PAIN. PT WANTS MEDICATION FOR IT AND SLEEPING MEDICATION. WILL MEDICATED PER MD ORDER. MESSAGED DR. WILLIAMSON FOR SLEEPING MEDICATION.
[2021-12-13] MEDS ORDERED: ZOLPIDEM 5 MG TAB PO PRN (20:35)
--- NOTE | 2021-12-14 00:10 | NUR ---
PT IS SLEEPING IN BED COMFORTABLY. PT IS NOT IN ANY DISTRESS. BREATHING EVEN AND UNLABORED. IVF RUNNING PER MD ORDER. CALL LIGHT WITHIN REACH. ALL SAFETY MEASURES TAKEN. WILL CONTINUE TO MONITOR THE PT.
--- NOTE | 2021-12-14 02:00 | NUR ---
PT WANTED SOME ICE WATER. NO FURTHER COMPLAINS FROM THE PT. ALL SAFETY MEASURES TAKEN. WILL CONTINUE TO MONITOR THE PT.
[2021-12-14] MEDS: MORPHINE SULFATE 2 MG/ML SYR IVP PRN ×2 (03:33→12:58)
[2021-12-14] MEDS: PIPERACILLIN/TAZOBACTAM 3.375 GM in DEXTROSE 5% 50 ML IV SCH ×2 (05:44→12:58)
--- NOTE | 2021-12-14 05:50 | NUR ---
ALL DUE MEDS GIVEN. NO ADVERSE REACTION NOTED. WILL CONTINUE TO MONITOR THE PT.
[2021-12-14 06:47] LABS: EOSINOPHILS # (AUTO) 0.1 K/uL (0-0.4); EOSINOPHILS % (AUTO) 0.5 % (0.0-4.0); HEMATOCRIT 31.9 % (36-48); HEMOGLOBIN 10.3 g/dL (12.0-16.0); MEAN CORPUSCULAR HEMOGLOBIN 26 pg (27-31); MEAN CORPUSCULAR HGB CONC 32 g/dL (33-37); MONOCYTES # (AUTO) 0.7 K/uL (0.8-1.0); RED CELL DISTRIBUTION WIDTH 15.4 % (11.6-13.7)
--- NOTE | 2021-12-14 07:20 | NUR ---
ENDORSED PT TO DAY SHIFT RN FOR CONTINUITY OF CARE. PT IS STABLE.
[2021-12-14 08:00] VITALS: BP 132/78
[2021-12-14 08:06] LABS: ANION GAP 8.3 (8-16); CARBON DIOXIDE 32.6 mmol/L (21-32); POTASSIUM 3.9 mmol/L (3.5-5.1)
--- NOTE | 2021-12-14 08:39 | NUR ---
RECEIVED ENDORSEMENT FROM PM SHIFT NURSE WITH PT STABLE ON BED. PIV RAC 22G PATENT. CHANGING COLOSTOMY BAG AND ABDOMINAL WOUND DRESSING. WILL CONTINUE TO MONITOR PATIENT.
[2021-12-14] MEDS: DOCUSATE SODIUM 100 MG GELCAP PO SCH (09:00)
[2021-12-14] MEDS: PANTOPRAZOLE 40 MG TABEC PO SCH (09:00)
[2021-12-14] MEDS: DEXT 5% /NACL 0.9% 1,000 ML IV SCH (09:25)
[2021-12-14] MEDS ORDERED: VANCOMYCIN 1,000 MG in DEXTROSE 5% 250 ML IV SCH (10:00)
[2021-12-14] MEDS ORDERED: LEVO750T51 PO (11:31)
[2021-12-14 11:44] LABS: BASOPHILS # (AUTO) 0.1 K/uL (0.00-0.22); BASOPHILS % (AUTO) 0.6 % (0.0-2.0); LYMPHOCYTES # (AUTO) 0.8 K/uL (2.5-16.5); LYMPHOCYTES % (AUTO) 5.9 % (20.5-51.1); MEAN CORPUSCULAR VOLUME 82.5 fL (80-94); MONOCYTES % (AUTO) 5.8 % (1.7-9.3); NEUTROPHILS # (AUTO) 11.2 K/uL (1.8-7.7); NEUTROPHILS % (AUTO) 87.2 % (42.2-75.2); RED BLOOD CELL COUNT(AUTO) 3.84 MIL/uL (4.20-5.40); WHITE BLOOD COUNT (AUTO) 12.8 K/uL (4.8-10.8)
[2021-12-14 11:48] LABS: PLATELET COUNT (AUTO) 768 K/uL (140-450)
[2021-12-14] MEDS: MAGNESIUM HYDROXIDE 2400 MG/30 ML UDC PO PRN (12:58)
[2021-12-14 14:25] VITALS: BP 124/73
--- NOTE | 2021-12-14 16:41 | NUR ---
SPOUSE IS HER TO LINEN CONTROLLER PATIENT. IV & WRIST BAND REMOVED, PATIENT STABLE. D/C CONSENT SIGNED AND F/U INSTRUCTION GIVEN
== END 2021-12-14 16:45 | disposition home or self-care (01) | DRG 853 ==
LOC: MED 12:03 → MMU 14:55 → MTU 20:42
PROVIDERS: ADMIT Student in an Organized Health Care Education/Training Program; ATTEND Student in an Organized Health Care Education/Training Program
PROC: 0D1N0Z4 Bypass Sigmoid Colon to Cutaneous, Open Approach (ICD-10-PCS; 2021-12-10)
PROC: 0W9J00Z Drainage of Pelvic Cavity with Drainage Device, Open Approach (ICD-10-PCS; 2021-12-10)
PROC: 0DNN0ZZ Release Sigmoid Colon, Open Approach (ICD-10-PCS; 2021-12-10)
PROC: 0DTN0ZZ Resection of Sigmoid Colon, Open Approach (ICD-10-PCS; principal; 2021-12-10 10:00)
DX: A41.9 Sepsis, unspecified organism (principal); E43 Unspecified severe protein-calorie malnutrition; K65.1 Peritoneal abscess; N17.0 Acute kidney failure with tubular necrosis; K57.20 Diverticulitis of large intestine with perforation and abscess without bleeding; E87.1 Hypo-osmolality and hyponatremia; E87.6 Hypokalemia; E83.51 Hypocalcemia; K80.20 Calculus of gallbladder without cholecystitis without obstruction; E86.0 Dehydration; D18.00 Hemangioma unspecified site; Z20.822 Contact with and (suspected) exposure to COVID-19
CPT/HCPCS: 36415; 71045; 74018; 76700; 80048; 80053; 80202; 81001; 82150; 82272; 82607; 82728; 82746; 83036; 83540; 83605; 83690; 83735; 84100; 84443; 85025; 85045; 86704; 86706; 86708; 86709; 86803; 86886; 86900; 86901; 87040; 87070; 87075; 87081; 87086; 87205; 87340; 88307; 96361; 96365; 96375; 97112; 97116; 97163-GP; 97530; 99291; J0690; J1100; J1170; J2001; J2175; J2250; J2270; J2405; J2543; J2704; J3010; J3370; J3490; J7030; J7060; J7120; Q0092; Q9967

== ENCOUNTER 2022-01-06 15:33 | Inpatient (IN) | payer MEDICAID ==
[~2022-01-06] VITALS: Ht 162.6 cm; Wt 78.0 kg
[~2022-01-06 15:33] MED LIST: LEVO750T51 PO; OMEP10EC PO
[2022-01-06 15:37] VITALS: BP 104/68
--- NOTE | 2022-01-06 15:50 | NUR ---
Patient ambulate with slow steady gait to bed 2.
[2022-01-06] MEDS ORDERED: ACETAMINOPHEN 325 MG TAB PO ONE (15:55)
[2022-01-06] MEDS ORDERED: ACETAMINOPHEN EXTRA STRENGTH 500 MG TAB PO ONE (16:00)
--- NOTE | 2022-01-06 16:00 | NUR ---
61 Y/O FEMALE BIB DAUGHTER IN [place] WITH C/O SUBJECTIVE FEVERS, ABD PAIN, N/V SINCE YESTERDAY. REPORTS TAKING TYLENOL BUT STATES SHE CONTINUES TO THROW IT UP. STATES SHE HAD A COLECTOMY HERE 4 WKS AGO. SURGICAL SITE LOOKS DRY AND CLEAN. PT DENIES NAUSEA, VOMITING, DIARRHEA. PT DENIES CHEST PAIN, SOB. PT IS ALERT AND ORIENTEDX4. VSS TEMP 103.6, P 124, R25, PULSE OX 95% ROOM AIR. MADE AWARE. BED LOCKED IN LOWEST POSITION. BED RAILX1. MEDHX: DENIES
[2022-01-06] MEDS ORDERED: CEFEPIME 1,000 MG in DEXTROSE 5% 50 ML IV ONE (16:05)
[2022-01-06] MEDS ORDERED: NACL 0.9% 2,000 ML IV ONE (16:05)
[2022-01-06] MEDS ORDERED: VANCOMYCIN 1,000 MG in DEXTROSE 5% 250 ML IV ONE (16:05)
--- NOTE | 2022-01-06 16:13 | NUR ---
LAB AT PT BEDSIDE
--- NOTE | 2022-01-06 16:17 | NUR ---
URINE HANDED TO LAB
--- NOTE | 2022-01-06 16:17 | NUR ---
XR AT PT BEDSIDE
--- NOTE | 2022-01-06 16:24 | NUR ---
RT AT PT BEDSIDE
--- NOTE | 2022-01-06 16:24 | NUR ---
GILSON BETANCOURT HANDED TO LAB
[2022-01-06] MEDS ORDERED: CEFEPIME 1,000 MG VIAL ONE (16:56)
[2022-01-06 16:59] LABS: HEMATOCRIT 31.6 % (36-48); HEMOGLOBIN 10.1 g/dL (12.0-16.0); MEAN CORPUSCULAR HEMOGLOBIN 26 pg (27-31); MEAN CORPUSCULAR HGB CONC 32 g/dL (33-37); PLATELET COUNT (AUTO) 384 K/uL (140-450); RED BLOOD CELL COUNT(AUTO) 3.95 MIL/uL (4.20-5.40); RED CELL DISTRIBUTION WIDTH 16.1 % (11.6-13.7); WHITE BLOOD COUNT (AUTO) 13.9 K/uL (4.8-10.8)
--- NOTE | 2022-01-06 17:04 | NUR ---
PT TAKEN TO CT VIA SILVANA
[2022-01-06 17:11] LABS: BILIRUBIN,URINE NEGATIVE (NEGATIVE); BLOOD, URINE 3+ (NEGATIVE); COLOR,URINE YELLOW (YELLOW); LEUKOCYTE ESTERASE ,URINE 2+ (NEGATIVE); NITRITE, URINE NEGATIVE (NEGATIVE); UGLUCOSE NEGATIVE (NEGATIVE)
[2022-01-06 17:16] LABS: PROTHROMBIN TIME 12.2 secs (10.8-13.4)
[2022-01-06 17:22] LABS: ALBUMIN 2.4 g/dL (3.4-5.0); ANION GAP 14.9 (8-16); ASPARTATE AMINOTRANSFERASE 29 U/L (15-37); CARBON DIOXIDE 27.3 mmol/L (21-32); CHLORIDE 102 mmol/L (98-107); GFR ARICAN-AMERICAN 73 mL/min (>90); GLUCOSE 195 mg/dL (74-106); POTASSIUM 3.2 mmol/L (3.5-5.1); SODIUM SERUM 141 mmol/L (136-145); TOTAL BILIRUBIN 0.7 mg/dL (0.0-1.0); UREA NITROGEN, BLOOD 9 mg/dL (7-18)
[2022-01-06 17:27] LABS: EOSINOPHILS % (MANUAL) 2 % (0-4); LYMPHOCYTES % (MANUAL) 9 % (20-46); MONOCYTES % (MANUAL) 1 % (5-12)
[2022-01-06 17:28] LABS: APPEARANCE,URINE CLOUDY (CLEAR)
[2022-01-06 17:33] LABS: RBC,URINE >100 /HPF (0-5)
[2022-01-06] MEDS ORDERED: metroNIDAZOLE 500 MG/NS PREMIX 100 ML IV ONE (17:50)
[2022-01-06] MEDS ORDERED: VANCOMYCIN 1,000 MG VIAL ONE (18:02)
[2022-01-06] MEDS ORDERED: ASPIRIN 81 MG TAB.CHEW PO ONE (18:45)
[2022-01-06] MEDS ORDERED: NACL 0.9% 500 ML IV ONE (18:50)
--- NOTE | 2022-01-06 19:12 | NUR ---
Pt report given to SUZIE GIBBS. Transfer of care at this time.
--- NOTE | 2022-01-06 19:13 | NUR ---
FLAGYL PULLED BUT NOT GIVEN, ENDORSED TO AERONAUTICAL DRAFTER.
--- NOTE | 2022-01-06 19:23 | NUR ---
TROP LEVEL 1316, REPORTED TO DR. WILLIAMSON. STATES PT WILL NEED CENTRAL LINE FOR LEVOPHED AND HEPARIN DRIP. DR. PIRES MADE AWARE OF NEED OF CENTRAL LINE.
[2022-01-06] MEDS ORDERED: HEPARIN PER PHARMACY MC PRN (19:25)
[2022-01-06] MEDS ORDERED: NOREPINEPHRINE 8 MG in DEXTROSE 5% 250 ML IV PRN (19:25)
[2022-01-06] MEDS ORDERED: guaiFENesin DM 200/20 MG-10 ML 10 ML UDC PO PRN (19:40)
[2022-01-06] MEDS ORDERED: DOCUSATE SODIUM 100 MG GELCAP PO PRN (19:40)
[2022-01-06] MEDS ORDERED: ZOLPIDEM 5 MG TAB PO PRN (19:40)
[2022-01-06] MEDS ORDERED: HYDROcodone/APAP 7.5/325 MG 1 TAB PO PRN (19:40)
[2022-01-06] MEDS ORDERED: ONDANSETRON 4 MG/2 ML VIAL IM/IVP PRN (19:40)
[2022-01-06] MEDS ORDERED: MORPHINE SULFATE 2 MG/ML SYR IVP PRN (19:40)
[2022-01-06] MEDS: PIPERACILLIN/TAZOBACTAM 3.375 GM in DEXTROSE 5% 50 ML IV SCH (19:45)
--- NOTE | 2022-01-06 19:45 | NUR ---
WAITING FOR DR. PIRES TO PLACE CDENTRAL LINE TO MOVE FOWARD WITH LEVOPHED DRIP.
--- NOTE | 2022-01-06 20:05 | NUR ---
CONSENT FOR CENTRAL LINE OBTAINED.
[2022-01-06] MEDS: metroNIDAZOLE 500 MG/NS PREMIX 100 ML IV SCH (20:07)
[2022-01-06 20:45] LABS: FREE T4 (FREE THYROXINE) 1.6 ng/dL (0.76-1.46); MAGNESIUM 1.5 mg/dL (1.8-2.4); PHOSPHORUS 2.4 mg/dL (2.5-4.9); THYROID STIMULATING HORMONE 1.01 uIU/mL (0.34-3.74)
--- NOTE | 2022-01-06 20:55 | NUR ---
AT BEDSIDE FOR CENTRAL LINE.
--- NOTE | 2022-01-06 20:58 | NUR ---
FEMORAL LINE IN PLACE.
[2022-01-06] MEDS: hePARIN / DEXT 5% PREMIX 250 ML IV SCH (21:21)
--- NOTE | 2022-01-06 21:26 | NUR ---
HEPARIN DRIP STARTED PER BECKY.
[2022-01-06] MEDS ORDERED: PIPERACILLIN/TAZOBACTAM 3.375 GM VIAL IV ONE (21:28)
[2022-01-06] MEDS: DEXT 5% /NACL 0.9% 1,000 ML IV SCH (21:35)
--- NOTE | 2022-01-06 22:00 | NUR ---
PT TRANSFERRED FROM ED, ARRIVED TO ICU UNIT BED 5. TELEPHONE REPORT RECEIVED PRIOR TO PT ARRIVAL. PT IN STABLE CONDITION IN NO APPARENT ACUTE DISTRESS. PT AOX4, PLEASANT, ANSWERED ALL MEDICAL HISTORY QUESTIONS. BREATHING EVEN AND UNLABORED AT RA, DENIES ANY SOB OR CHEST PAIN. LEFT COLOSTOMY BAG PRESENT. PT CONTINENT AND ABLE TO AMBULATE TO BEDSIDE COMMODE. R FOREARM 20 G AND R FEMORAL CENTRAL TLC PRESENT. HEPARIN DRIP INFUSING AT 1400 UNITS/HR AND D5NS AT 120 ML/HR. ALL SAFETY MEASURES IN PLACE, BED AT LOCKED AND AT LOWEST POSITION. WILL CONTINUE TO CLOSELY MONITOR AND FOLLOW POC.
--- NOTE | 2022-01-06 22:45 | NUR ---
ADMINISTERED K DUR PER PRN ORDERS FOR K LEVEL OF 3.2. PT TOLERATED WELL.
[2022-01-06] MEDS: POTASSIUM CHLORIDE 10 MEQ TABER PO PRN (22:47)
[2022-01-06 23:00] VITALS: BP 112/64
[2022-01-07] VITALS (20 sets, daily range): BP systolic 94–170; BP diastolic 45–77
[2022-01-07] MEDS ORDERED: PIPERACILLIN/TAZOBACTAM 3.375 GM VIAL IV ONE (00:06)
[2022-01-07] MEDS: PIPERACILLIN/TAZOBACTAM 3.375 GM in DEXTROSE 5% 50 ML IV SCH ×5 (00:19→23:36)
[2022-01-07] MEDS: ACETAMINOPHEN 325 MG TAB PO PRN ×2 (00:29→12:05)
--- NOTE | 2022-01-07 00:35 | NUR ---
PT WITH COMPLAINT OF CHILLS, TEMPERATURE CHECK 101.9. ADMINISTERED ACETAMINOPHEN PER PRN ORDERS. PT IN NO APPARENT ACUTE DISTRESS, DENIES ANY PAIN OR DIFFICULTY BREATHING. WILL CONTINUE TO CLOSELY MONITOR.
--- NOTE | 2022-01-07 02:30 | NUR ---
PT IN NO ACUTE DISTRESS, STATES SHE FEELS BETTER. VSS. CONTINUES ON RA O2 SAT 96%. ALL COMFORT MEASURES PROVIDED. WILL CONTINUE TO CLOSELY MONITOR AND FOLLOW POC.
[2022-01-07 03:38] LABS: BASOPHILS # (AUTO) 0.1 K/uL (0.00-0.22); BASOPHILS % (AUTO) 0.4 % (0.0-2.0); EOSINOPHILS % (AUTO) 0.2 % (0.0-4.0); HEMATOCRIT 26.1 % (36-48); HEMOGLOBIN 8.5 g/dL (12.0-16.0); LYMPHOCYTES # (AUTO) 0.8 K/uL (2.5-16.5); LYMPHOCYTES % (AUTO) 6.3 % (20.5-51.1); MEAN CORPUSCULAR HEMOGLOBIN 26 pg (27-31); MEAN CORPUSCULAR HGB CONC 33 g/dL (33-37); MEAN CORPUSCULAR VOLUME 79.5 fL (80-94); MONOCYTES # (AUTO) 0.7 K/uL (0.8-1.0); MONOCYTES % (AUTO) 5.6 % (1.7-9.3); NEUTROPHILS # (AUTO) 10.8 K/uL (1.8-7.7); NEUTROPHILS % (AUTO) 87.5 % (42.2-75.2); PLATELET COUNT (AUTO) 308 K/uL (140-450); RED BLOOD CELL COUNT(AUTO) 3.28 MIL/uL (4.20-5.40); WHITE BLOOD COUNT (AUTO) 12.3 K/uL (4.8-10.8)
--- NOTE | 2022-01-07 03:45 | NUR ---
ASSISTED PT TO BEDSIDE COMMODE, PT WITH STEADY GAIT AND NO SIGNS OF ACUTE DISTRESS. TEMPERATURE RECHECK 97.6, PT DENIES ANY PAIN OR DISCOMFORT AT THIS MOMENT. ALL SAFETY MEASURES IN PLACE INCLUDING BED AT LOWEST POSITION AND LOCKED. WILL CONTINUE TO CLOSELY MONITOR AND FOLLOW POC.
[2022-01-07 03:51] LABS: ANION GAP 12.5 (8-16); CARBON DIOXIDE 26.6 mmol/L (21-32); CREATININE 0.9 mg/dL (0.6-1.3); POTASSIUM 3.1 mmol/L (3.5-5.1)
[2022-01-07 03:53] LABS: PROTHROMBIN TIME 12.8 secs (10.8-13.4)
[2022-01-07] MEDS: DEXT 5% /NACL 0.9% 1,000 ML IV SCH ×2 (04:00→09:30)
[2022-01-07] MEDS: metroNIDAZOLE 500 MG/NS PREMIX 100 ML IV SCH ×2 (04:44→13:24)
--- NOTE | 2022-01-07 04:45 | NUR ---
INCREASED HEPARIN DRIP PER PROTOCOL FOR PTT OF 42.5 FROM LAB RESULTS AT 0330. WILL CONTINUE TO MONITOR.
[2022-01-07] MEDS: POTASSIUM CHLORIDE 10 MEQ TABER PO PRN (06:58)
--- NOTE | 2022-01-07 07:10 | NUR ---
REPORT RECEIVED FROM SUZIE JEFFERSON.
--- NOTE | 2022-01-07 07:30 | NUR ---
REPORT GIVEN TO DAY SHIFT NURSE. PT IN NO ACUTE DISTRESS.
--- NOTE | 2022-01-07 07:40 | NUR ---
SPOKE WITH DR. GARCIA ON PHONE. UPDATED ON PATIENTS CONDITION, LAB RESULTS, CT IMPRESSION RESULTS. ORDERS RECEIVED.
[2022-01-07] MEDS ORDERED: POTASSIUM CHLORIDE 40 MEQ, LIDOCAINE MPF 1% 25 MG in NACL 0.9% 250 ML IV SCH (08:00)
--- NOTE | 2022-01-07 08:00 | NUR ---
PATIENT AROUSES TO VERBAL STIMULI. WELSH SPEAKING ONLY. MOVES ALL EXTREMITIES INDEPENDENTLY. HEART SOUNDS REGULAR. S1S2. NO MURMUR AUSCULTATED. MONITOR SHOWS SR WITHOUT ECTOPY. +DP PULSES BILATERALLY. NO EDEMA. RIGHT FA 20G WITH HEPARIN AT 1550 UNITS/HR. RIGHT FEMORAL TLC IN PLACE WITH DT.9NS AT 30ML/HR. ANTERIOR/LATERAL BREATH SOUNDS CTA. PATIENT ON RA WITH SAO2 97%. HYPOACTIVE BOWEL SOUNDS IN ALL QUADRANTS. ABDOMEN SOFT, ROUND. STATES LITTLE PAIN IN ABDOMEN. NO GRIMACE OR REACTION WITH PALPATION. LEFT LOWER QUADRANT COLOSTOMY WITH PINK STOMA. LIQUID BROWN SEEDY STOOL. [place] [facility] [place]
[2022-01-07] MEDS ORDERED: MAG SULF 2000 MG/WATER PREMIX 50 ML IV SCH (08:30)
[2022-01-07] MEDS ORDERED: hydrALAZINE 20 MG/ML VIAL IVP PRN (08:40)
[2022-01-07] MEDS: PANTOPRAZOLE 40 MG TABEC PO SCH (09:21)
--- NOTE | 2022-01-07 09:30 | NUR ---
COLOSTOMY LEAKING. CHANGED. SKIN RED WITH SMALL SKIN TEAR AT 6 O'CLOCK POSITION. SKIN BARRIER PLACED ON SKIN PRIOR TO REPLACING COLOSTOMY BAG. MAGNESIUM REPLACEMENT STARTED FOR MG LEVEL 1.5. POTASSIUM IVPB STARTED FOR K 3.1. DR. WILLIAMSON AT BEDSIDE AND SPOKE WITH [id number] ON PHONE. ORDERS RECEIVED.
--- NOTE | 2022-01-07 10:00 | NUR ---
DR. GARCIA AT BEDSIDE. UPDATE GIVEN.
[2022-01-07 10:21] LABS: BARBITURATE, URINE NEGATIVE ng/ml (NEG <=200); BENZODIAZEPINE, URINE NEGATIVE ng/mL (NEG <=200); CANNABINOID, URINE NEGATIVE ng/mL (NEG <=50); COCAINE, URINE NEGATIVE ng/mL (NEG <=300); OPIATE, URINE NEGATIVE ng/mL (NEG <=2000); PHENCYCLIDINE SCREEN,URINE NEGATIVE ng/mL (NEG <=25)
[2022-01-07] MEDS: hePARIN / DEXT 5% PREMIX 250 ML IV SCH (10:58)
[2022-01-07 11:36] LABS: PROTHROMBIN TIME 12.5 secs (10.8-13.4)
[2022-01-07] MEDS: ATORVASTATIN 20 MG TAB PO SCH (12:22)
[2022-01-07] MEDS: ECOTRIN 81 MG TABEC PO SCH (12:22)
[2022-01-07] MEDS: METOPROLOL 25 MG TAB PO SCH ×2 (12:23→21:00)
[2022-01-07] MEDS ORDERED: CRUSHER, PILL MC ONE (12:24)
--- NOTE | 2022-01-07 12:30 | NUR ---
TEMP 100.1. TYLENOL 659MG GIVEN. DR. MOON HERE TO SEE PATIENT. ORDERS RECEIVED. DR. ORTIZ HERE TO SEE. UPDATED ON PATIENT CONDITION. ORDER RECEIVED TO DOWNGRADE TO TELEMETRY.
--- NOTE | 2022-01-07 12:35 | NUR ---
DC PLANN[age] YRS OLD FEMALE PATIENT WAS ADMITTED FROM HOME WITH A DX OF SEPSIS ,ELEVATED TROPONIN. TROP 1316 . PATIENT HAS A HX OF DIVERTICULITIS S/P RECENT LEFT PARTIAL COLECTOMY PLACEMENT. CXR SHOWED NO ACUTE CARDIOPULMONARY DISEASE. CT ABD SHOWED SCATTERED POSTSURGICAL FLUID AND INFLAMMATORY STANDING AND LOWER ABDOMEN AND PELVIS. RAPID COVID TEST NEGATIVE. ADMINISTERED IVF, IV ABX ZOSYN AND HEPARIN DRIP AND CONTINUED HOME MEDS. CONSULTED WITH CARDIO ,PULMO, ID AND SURGEON DR GARCIA. DC PLAN TO GO HOME WHEN STABLE CM TO FOLLOW Addendum: 01/08/22 at 1117 by Yael Mata RN DC PLANNING: SEEN BY ID DR CARR ORDERED C-DIFF , AWAITING FOR URINE AND BLOOD CULTURE .CONTINUED IV ABX ZOSYN AND FLAGYL AND CONTINUE HEPARIN DRIP. CARDIO,PULMO AND ID FOLLOWING. DC PLAN TO GO HOME WHEN STABLE.CM TO FOLLOW
--- NOTE | 2022-01-07 14:00 | NUR ---
SLIME PICC LINE PLACED AND VERIFIED WITH XRAY. HEPARIN DRIP AND IVF'S MOVED TO PICC LINE. RIGHT FEMORAL TLC REMOVED, PATIENT TOLERATED WELL. RIGHT FA 20G IV DC'D WITHOUT DIFFICULTY.
--- NOTE | 2022-01-07 15:25 | NUR ---
DR. CARR IN TO SEE PATIENT, UPDATE GIVEN. ORDERS RECEIVED. LIQUID YELLOW STOOL SENT TO LAB.
--- NOTE | 2022-01-07 18:57 | NUR ---
RECEIVED PATIENT AT 1840. PATIENT IS AOX4, SINUS RHYTHM, RESPIRATIONS EVEN AND UNLABORED ON ROOM AIR. VITAL SIGNS STABLE. DENIES PAIN AT THIS TIME. ABDOMINAL INCISION IS CLOSED/HEALED, COLOSTOMY BAG WITH SCANT DRAINAGE, PATIENT EMPTIES IT OUT HERSELF. IV FLUIDS INFUSING. HEPARIN GTT INFUSING AT 1550 U/HOUR. ORIENTED PATIENT TO UNIT AND ROUTINE. WILL ENDORSE TO NIGHT RN.
--- NOTE | 2022-01-07 19:12 | NUR ---
RECEIVED REPORT FROM AM NURSE FOR CONTINUITY OF CARE. PT IS A&OX4. RR EVEN AND UNLABORED WITH EQUAL CHEST RISE. AMBULATES. HEPARIN DRIP INFUSING AT 1550 UNITS/HR. NO SIGNS OF BLEEDING NOTED. 1740 APTT LAB DRAW STILL PENDING. ALL SAFETY MEASURES IN PLACE. WILL CONTINUE TO MONITOR.
--- NOTE | 2022-01-07 19:15 | NUR ---
HEPARIN DRIP INFUSING AT 1550 UNITS/HOUR. NO SIGNS OF BLEEDING PRESENT. APTT LABS STILL PENDING. ENDORSED TO NIGHT SUZIE LOPEZ.
[2022-01-07 19:23] LABS: PROTHROMBIN TIME 12.2 secs (10.8-13.4)
--- NOTE | 2022-01-07 21:00 | NUR ---
CALLED LAB AT 19:40 APTT RESULT= 49.5 H . PER PROTOCOL HEPARIN DRIP REMAINS AT 1550 UNITS/HR NO CHANGE. ANOTHER APTT DRAW WAS ORDERED FOR 01/08/2022 @ 17:40. VSS:BP-117/60. PT REFUSED HS LOPRESSOR. COLOSTOMY LEAKING. COMPLETELY NEW APPLIANCE PUT ON. BED LINENS CHANGED. DIET WAS UP GRATED TO REGULAR. TOOK WATER AND JUICE. ALL SAFETY MEASURES IN PLACE. CALL LIGHT WITHIN REACH. WILL CONTINUE TO MONITOR.
--- NOTE | 2022-01-08 02:00 | NUR ---
FREQ ROUNDS. CHECKED PT STABLE AND ASLEEP. RR EVEN AND UNLABORED WITH EQUAL CHEST RISE. NAD. HEPARIN DRIP INFUSING [id number] UNITS /HR AND IVF: D5NS @ 60CC/HR. SLIME PICC LINE PATENT. BED IN LOW AND LOCKED POSITION. CALL LIGHT WITHIN REACH. WILL CONTINUE TO MONITOR.
[2022-01-08] MEDS: DEXT 5% /NACL 0.9% 1,000 ML IV SCH (03:34)
[2022-01-08] MEDS: hePARIN / DEXT 5% PREMIX 250 ML IV SCH (04:30)
[2022-01-08] MEDS: PIPERACILLIN/TAZOBACTAM 3.375 GM in DEXTROSE 5% 50 ML IV SCH ×2 (05:05→11:58)
[2022-01-08 06:50] LABS: ANION GAP 9.3 (8-16); CARBON DIOXIDE 26.9 mmol/L (21-32); CREATININE 0.7 mg/dL (0.6-1.3); POTASSIUM 3.2 mmol/L (3.5-5.1)
[2022-01-08 06:51] LABS: BASOPHILS % (AUTO) 0.5 % (0.0-2.0); EOSINOPHILS # (AUTO) 0.3 K/uL (0-0.4); HEMATOCRIT 25.7 % (36-48); HEMOGLOBIN 8.3 g/dL (12.0-16.0); LYMPHOCYTES % (AUTO) 15.1 % (20.5-51.1); MEAN CORPUSCULAR HEMOGLOBIN 26 pg (27-31); MEAN CORPUSCULAR HGB CONC 33 g/dL (33-37); MEAN CORPUSCULAR VOLUME 80.5 fL (80-94); MONOCYTES # (AUTO) 0.5 K/uL (0.8-1.0); MONOCYTES % (AUTO) 8.1 % (1.7-9.3); NEUTROPHILS # (AUTO) 4.8 K/uL (1.8-7.7); NEUTROPHILS % (AUTO) 72.3 % (42.2-75.2); PLATELET COUNT (AUTO) 299 K/uL (140-450); RED CELL DISTRIBUTION WIDTH 16.2 % (11.6-13.7); WHITE BLOOD COUNT (AUTO) 6.6 K/uL (4.8-10.8)
--- NOTE | 2022-01-08 07:15 | NUR ---
ENDORSED REPORT TO AM NURSE FOR CONTINUITY OF CARE. PT'S COLOSTOMY CHANGED A SECOND TIME DUE TO LEAKAGE NEAR BOTTOM OF WAFER AGAINST SKIN AND ABDOMEN FOLDS. REMAINS ON HEPARIN DRIP AT 1550 UNITS PER HR 15.5 ML/HR.NEXT APTT TO BE DRAWN AT 17:40 01/08/2022. ALL SAFETY MEASURES IN PLACE. PT IS STABLE.
--- NOTE | 2022-01-08 07:20 | NUR ---
RECEIVED REPORT FROM ELASTIC ATTACHER ZIGZAG NURSE FOR CONTINUITY OF CARE. PT ALERT AND AWAKE, SITTING ON HER BED. BREATHING SYMMETRICAL ON ROOM AIR. SLIME PICC LINE DOUBLE LUMEN INFUSING HEPARIN AT 15.5ML/HR (aPTT DRAW AT 1740 TODAY) AND D5NS AT 60CC/HR. NO C/O PAIN AT THIS TIME. COLOSTOMY ON LLQ. CALL LIGHT WITHIN REACH. ALL SAFETY MEASURES IN PLACE.
[2022-01-08 08:00] VITALS: BP 117/67
[2022-01-08 08:07] LABS: T4 (THYROXINE) 10.6 ug/dL (4.5-12.0)
[2022-01-08] MEDS: PANTOPRAZOLE 40 MG TABEC PO SCH (08:42)
[2022-01-08] MEDS: ATORVASTATIN 20 MG TAB PO SCH (08:43)
[2022-01-08] MEDS: ECOTRIN 81 MG TABEC PO SCH (08:43)
[2022-01-08] MEDS: POTASSIUM CHLORIDE 10 MEQ TABER PO PRN (08:43)
[2022-01-08] MEDS: METOPROLOL 25 MG TAB PO SCH (08:44)
--- NOTE | 2022-01-08 08:50 | NUR ---
SCHEDULED AM MEDICATIONS GIVEN ORDERED. PT REFUSED METOPROLOL MEDICATION. PRN K DUR ALSO GIVEN FOR K LEVEL 3.2. COLOSTOMY ON LLQ INTACT WITH BROWN LIQUID OUTPUT. PT DENIES PAIN AT THIS TIME. WILL CONTINUE TO MONITOR.
--- NOTE | 2022-01-08 10:16 | NUR ---
PATIENT HAS BEEN SCREENED AND CATEGORIZED LOW NUTRITION RISK. PATIENT WILL BE SEEN WITHIN 7 DAYS OF ADMISSION. 01/13/[address]
--- NOTE | 2022-01-08 10:32 | NUR ---
PT AWAKE IN BED, ABLE TO AMBULATE. BREATHING SYMMETRICAL ON ROOM AIR. DENIES PAIN AT THIS TIME. COLOSTOMY INTACT. ENCOURAGED TO ALWAYS CALL FOR ASSISTANCE. CALL LIGHT WITHIN REACH. BED ON LOW POSITION, BRAKES ON. ALL SAFETY MEASURES IN PLACE
--- NOTE | 2022-01-08 11:51 | NUR ---
PT TRANSFERRED TO [facility]
[2022-01-08] MEDS ORDERED: CEPH-588 PO (13:41)
[2022-01-08] MEDS ORDERED: ATOR20TA40 PO (14:05)
[2022-01-08] MEDS ORDERED: METO25TA PO (14:05)
[2022-01-08] MEDS ORDERED: ASPI-1856 PO (14:05)
[2022-01-08 14:12] VITALS: BP 117/67
--- NOTE | 2022-01-08 14:35 | NUR ---
PT FOR DISCHARGE TO HOME. OBTAINED ORDER FOR PICC LINE REMOVAL FROM DR ANTUNEZ. SLIEM PICC LINE REMOVED, CATHETER INTACT, DENIES PAIN. NO ACTIVE BLEEDING NOTED.
--- NOTE | 2022-01-08 14:51 | NUR ---
PT DISCHARGED TO HOME WITH PAPERWORKS AND BELONGINGS, PICKED UP BY FAMILY, IN STABLE CONDITION
== END 2022-01-08 14:55 | disposition home or self-care (01) | DRG 720 ==
LOC: MED 15:33 → MIC 19:38 → MTU 01-07 18:15
PROVIDERS: ADMIT Family Medicine; ATTEND Family Medicine
PROC: 02HV33Z Insertion of Infusion Device into Superior Vena Cava, Percutaneous Approach (ICD-10-PCS; 2022-01-06)
PROC: 02HV33Z Insertion of Infusion Device into Superior Vena Cava, Percutaneous Approach (ICD-10-PCS; principal; 2022-01-07)
PROC: B548ZZA Ultrasonography of Superior Vena Cava, Guidance (ICD-10-PCS; 2022-01-07)
DX: A41.9 Sepsis, unspecified organism (principal); R65.21 Severe sepsis with septic shock; I21.A1 Myocardial infarction type 2; G93.41 Metabolic encephalopathy; E43 Unspecified severe protein-calorie malnutrition; D63.8 Anemia in other chronic diseases classified elsewhere; E83.39 Other disorders of phosphorus metabolism; N39.0 Urinary tract infection, site not specified; E83.42 Hypomagnesemia; R74.01 Elevation of levels of liver transaminase levels; E87.6 Hypokalemia; I51.7 Cardiomegaly; Z20.822 Contact with and (suspected) exposure to COVID-19; Z90.49 Acquired absence of other specified parts of digestive tract; Z93.3 Colostomy status; Z68.29 Body mass index [BMI] 29.0-29.9, adult; Z79.2 Long term (current) use of antibiotics; Z79.899 Other long term (current) drug therapy
CPT/HCPCS: 36415; 36556; 36600; 71045; 80048; 80053; 80305; 81001; 82150; 82550; 82553; 82803; 83036; 83605; 83690; 83735; 83880; 84100; 84436; 84439; 84443; 84479; 84484; 85025; 85610; 85730; 87040; 87070; 87081; 87086; 93005; 96361; 96365; 96367; 99291; J0692; J1644; J2001; J2405; J2543; J3370; J3475; J3480; J3490; J7030; J7060; Q0092